=== PATIENT | female | born 1955 | race Caucasian/White ===

== ENCOUNTER → 2017-03-21 16:45 | Outpatient (CLI) | payer BC ==
[2010-02-23 12:48] VITALS: BMI 34.5
== END | disposition home or self-care (01) ==
LOC: D.MAMMO 10:30
DX: Z12.31 Encounter for screening mammogram for malignant neoplasm of breast (principal)

== ENCOUNTER 2018-07-09 08:00 | Outpatient (CLI) | payer MEDICARE ==
[2010-02-23 12:48] VITALS: BMI 34.5
== END 2018-07-09 09:00 | disposition home or self-care (01) ==
LOC: D.MAMMO 08:00
DX: Z12.31 Encounter for screening mammogram for malignant neoplasm of breast (principal)

== ENCOUNTER → 2018-09-17 09:49 | Outpatient (CLI) | payer MEDICARE, OTHER ==
[2010-02-23 12:48] VITALS: BMI 34.5
== END | disposition home or self-care (01) ==
LOC: D.HCCARDIO 09:49
PROVIDERS: ATTEND Internal Medicine Cardiovascular Disease
DX: I20.9 Angina pectoris, unspecified (principal)

== ENCOUNTER → 2018-10-02 11:14 | Outpatient (CLI) | payer MEDICARE, OTHER ==
[~2018-10-02] VITALS: Ht 166.4 cm; Wt 87.3 kg
--- NOTE | ~2018-10-02 | HEMODYNAMI ---
PATIENT:WARREN CASTILLO MEDICAL RECORD: [id number] : 51 LOCATION:[facility] ADMISSION DATE: 10/02/18 Generatedon:10/02/201815:03 Patient name: WARREN CASTILLO Patient #: [id number] SSN: D OB: 1955 Date of study: 10/02/2018 Page: Of Hemodynamic Procedure Report Patient Data Patient Demographics Procedure consent was obtained First Name: WARREN Gender: Female Last Name: ANNA : 1955 Middle Initial: JODI Age: 63 year(s) Patient #: [id number] Race: Unknown Additional ID: [id number] Contact details Address: [address] [place] [address] [facility] State: [place] City: [place] Zip code: [address] Past Medical History Allergies Allergen Reaction Date Comments Reported Other allergy 10/02/2018 ADHESIVE, LATEX Admission Admission Data Admission Date: 10/02/2018 Admission Time: 11:14 Height (in.): 65 BSA: 1.96 (m2) Height (cm.): 165.1 BMI: 32.45 (kg/m2) Weight (lbs.): 195 Weight (kg.): 88.45 Lab Results Lab Result Date: 10/02/2018 Lab Result Time: 0:00 Biochemistry Name Units Result Min Max BUN mg/dl 16 --(---*)-- 7 18 Creatinine mg/dl 0.8 --(-*--)-- 0.6 1.3 CBC Name Units Result Min Max Hematocrit % 39 *-(----)-- 42 54 Hemoglobin g/dl 12.7 -*(----)-- 13.5 17.5 Procedure Procedure Types Cath Procedure Diagnostic Procedure [facility] w/Coronaries Sedation Charges Moderate Sedation up to 15 minutes PCI Procedure Coronary Stent Coronary Stent Initial Procedure Description Procedure Date Procedure Date: 10/02/2018 Procedure Start Time: 14:27 Procedure End Time: 14:58 Procedure Staff Name Function Keith Arzate MD Performing Physician Gui Kellogg RT Monitor Eunice Kimberly RT Scrub Jose Perez RN Nurse Procedure Data Cath Procedure Fluoroscopy Diagnostic fluoroscopy Total fluoroscopy Time: 3 time: 3 min min Diagnostic fluoroscopy Total fluoroscopy dose: 972 dose: 972 mGy mGy Contrast Material Contrast Material Type Amount (ml) Isovue 300 119 Entry Location Entry Primary Successful Side Size Upsize Upsize Entry Closure Succes sful Closure Location (Fr) 1 (Fr) 2 (Fr) Remarks Device Remarks Femoral Right 5 Fr Exoseal vein Femoral Right 5 Fr 6 Fr Exoseal artery Short Estimated blood loss: 10 ml Diagnostic catheters Device Type Used For End Catheter Placement MULTIPACK JL 4.0 5Fr Procedure catheter MULTIPACK 3DRC 5Fr Procedure catheter MULTIPACK Pigtail 5 Fr Procedure catheter Procedure Complications No complications Procedure Medications Medication Administration Route Dosage Oxygen etCO2 Nasal cannula 2 l/min 0.9% NaCl I.V. 100 ml/hr Lidocaine 2% added to field 20 Heparin Flush Bag added to field 2 bags (1000units/500ml NS) Versed I.V. 2 mg Fentanyl I.V. 100 mcg Versed I.V. 1 mg Fentanyl I.V. 50 mcg Versed I.V. 1 mg Fentanyl I.V. 50 mcg Heparin Bolus I.V. 8500 units Effient P.O. 60 mg Hemodynamics Rest BSA: 1.96 (m2) O2 Consumption: Estimated: 204.52 (ml/min) O2 Consumption indexed : Estimated:104.35 (ml/min/m) Heart Rate: 99 (bpm) Pressure Samples Time Site Value (mmHg) Purpose Heart Use Rate(bpm) 14:36 LV 98/-6,5 Snapshot 99 14:37 LV 98/-6,5 Snapshot 99 14:37 AO 98/54(71) Pullback 98 14:37 LV 99/0,13 Pullback 98 Gradients Valve Time Site 1 Site 2 Mean SEP/DFP Peak To Heart Use (mmHg) (sec/min) Peak Rate (mmHg) (bpm) Aortic 14:37 LV AO 9 6 1 98 99/0,13 98/54(71) Calculations Valve P-P Mean Valve Index Valve Source Name Gradient Area Flow (cm2) Aortic 1 9 1 9 Snapshots Pre Cath Intra NCS Post Cath Vital Signs Time Heart Resp SPO2 etCO2 NIBP (mmHg) Rhythm Pain Sedation Rate (ipm) (%) (mmHg) Status Level (bpm) 14:20:05 98 27 92 38.4 129/93(113) NSR 0 (11) 10(A) , No pain 14:24:09 98 13 93 33.9 123/81(94) NSR 0 (11) 10(A) , No pain 14:28:13 98 14 94 16.5 116/75(89) NSR 0 (11) 10(A) , No pain 14:32:15 100 14 96 6 119/74(87) NSR 0 (11) 9(A) , No pain 14:36:20 98 11 93 0 109/67(95) NSR 0 (11) 9(A) , No pain 14:40:24 96 10 93 0 95/57(74) NSR 0 (11) 9(A) , No pain 14:44:22 95 10 94 15 93/64(76) NSR 0 (11) 9(A) , No pain 14:48:21 96 11 93 0 94/55(71) NSR 0 (11) 9(A) , No pain 14:52:21 103 14 96 38.4 107/58(83) NSR 0 (11) 10(A) , No pain 14:56:21 93 16 96 46 109/68(86) NSR 0 (11) 10(A) , No pain Medications Time Medication Route Dose Verified Delivered Reason Notes Effectiveness by by 14:14:28 Oxygen etCO2 2 Keith Buffie used for Nasal l/min Nghia Perez RN procedure cannula 14:18:40 0.9% NaCl I.V. 100 Keith Buffie used for ml/hr Nghia Perez RN procedure 14:18:50 Lidocaine 2% added 20ml Keith Keith for local to vial Nghia Arzate MD anesthetic field 14:18:55 Heparin Flush added 2 Keith Keith used for Bag to bags Nghia Arzate MD procedure (1000units/500ml field NS) 14:27:01 Fentanyl I.V. 100 Keith Buffie for sedation mcg Nghia Perez RN 14:27:56 Versed I.V. 2 mg Keith Buffie for sedation Nghia Perez RN 14:30:03 Versed I.V. 1 mg Keith Buffie for sedation Nghia Perez RN 14:30:18 Fentanyl I.V. 50 Keith Buffie for sedation mcg Nghia Perez RN 14:36:52 Versed I.V. 1 mg Keith Buffie for sedation Nghia Perez RN 14:36:56 Fentanyl I.V. 50 Keith Buffie for sedation mcg Nghia Perez RN 14:46:05 Heparin Bolus I.V. 8,500 Keith Buffie for verif ied units Nghia Perez RN anticoagulation with dr arzate 14:53:50 Effient P.O. 60 mg Keith Buffie for Nghia Perez RN antiplatelet therapy Procedure Log Time Note 13:51:06 Signed procedure consent form obtained from patient. 13:51:12 Jose Perez RN sent for patient. Start room use. 13:59:12 H&P Date Dictated: 09/12/2018 Within 30 days and on chart., H&P Addendum completed by physician on day of procedure. (MUST COMPLETE FOR ALL OUTPATIENTS). 13:59:33 Patient allergic to Other allergyADHESIVE, LATEX 13:59:45 Patient Height : 65 inches 13:59:48 Patient Weight : 195 lbs 14:07:59 Patient received from Pre/Post Procedure Room to CCL 2 Alert and oriented. Tansferred to table in Supine position. 14:08:00 Warm blankets applied, and benjamin hugger turned on for patient comfort. 14:08:01 Correct patient and procedure confirmed by team. 14:08:01 ECG and BP/O2 sat monitors applied to patient. 14:14:28 Oxygen 2 l/min etCO2 Nasal cannula was administered by Jose Perez RN; used for procedure; 14:18:40 0.9% NaCl 100 ml/hr I.V. was administered by Jose Perez RN; used for procedure; 14:18:50 Lidocaine 2% 20ml vial added to field was administered by Keith Arzate MD; for local anesthetic; 14:18:55 Heparin Flush Bag (1000units/500ml NS) 2 bags added to field was administered by Keith Arzate MD; used for procedure; 14:19:01 Vital chart was started 14:20:14 Full Disclosure recording started 14:20:17 Pre-procedure instructions explained to patient. 14:20:17 Pre-op teaching completed and patient verbalized understanding. 14:20:18 Family in patients room. 14:20:20 Patient NPO since Midnight. 14:20:22 Is patient on blood thinner?No 14:20:24 Patient diabetic? Yes. 14:20:26 If diabetic: On Metformin? Yes 14:20:34 If on Metformin: Last Dose? 09/30/2018 14:20:38 Previous problem with sedation/anesthesia? No ? 14:20:42 Snore? No 14:20:43 Sleep apnea? No 14:20:45 Deviated septum? No 14:20:46 Opens mouth fully? Yes 14:20:46 Sticks out tongue? Yes 14:20:48 Airway obstruction? No ? 14:20:50 Dentures? No ? 14:20:52 Pre procedure: right dorsailis pedis pulse 2+ Normal; easily identifiable; not easily obliterated 14:20:57 Patient pain scale 0/10 ?. 14:21:06 IV patent on arrival in left forearm with 0.9% NaCl at [facility]. 14:23:27 Lab Result : BUN 16 mg/dl 14:23:27 Lab Result : Hemoglobin 12.7 g/dl 14:23:27 Lab Result : Creatinine 0.8 mg/dl 14:23:27 Lab Result : Hematocrit 39 % 14:23:32 Lab results completed and on chart. 14:23:37 Right groin area was prepped with chlora-prep and draped in sterile fashion 14:23:38 Alarms reviewed by R. N. 14:23:39 Sharps counted by scrub and verified by R.N. 14:24:27 Use device set Radial Dx or PCI 14:24:39 ACIST Syringe (13964) opened to sterile field. 14:24:40 Bag Decanter (2001S) opened to sterile field. 14:24:40 ACIST Hand Control (07561) opened to sterile field. 14:24:41 ACIST Manifold (75893) opened to sterile field. 14:24:42 Tegaderm 4 x 4 (1626W) opened to sterile field. 14:24:44 Medline Cath Pack ([id number]) opened to sterile field. 14:24:44 DIAGNOSTIC WIRE .035 260cm J wire (336723) opened to sterile field. 14:26:50 --------ALL STOP TIME OUT------ 14:26:50 Final Timeout: patient, procedure, and site verified with staff and physician. All members of the team are in agreement. 14::53 Right groin site verified by team. 14::55 Maximum allowable Isovue 300 dose 300ml. Physician notified. (300ml for normal creatinines. For patients with creatinine of 1.7 or higher multiply weight(kg) x 5 divided by creatinine.) 14:26:59 Fire Safety Assessment: A--An alcohol-based skin anteseptic being used preoperatively., C--Open oxygen or nitrous oxide is being used., D--An ESU, laser, or fiber-optic light is being used. 14:27:01 Fentanyl 100 mcg I.V. was administered by Jose Perez RN; for sedation; 14:27:03 Physical assessment completed. ASA score P 2 - A patient with mild systemic disease as per Keith Arzate MD. 14:27:05 Sedation plan: IV Moderate Sedation Medication:Versed, Fentanyl 14:27:28 Procedure started. 14::54 Local anesthetic to right femoral artery with Lidocaine 2% by Keith Arzate MD.INITIAL ACCESS ONLY 14::56 Versed 2 mg I.V. was administered by Jose Perez RN; for sedation; 14:29:20 SHEATH 5FR Pemberton (ZOI489) opened to sterile field. 14:29:21 A 5 Fr sheath was inserted into the Right Femoral vein 14:29:29 SHEATH 5FR [place] (NXO451) opened to sterile field. 14:30:03 Versed 1 mg I.V. was administered by Jose Perez RN; for sedation; 14:30:18 Fentanyl 50 mcg I.V. was administered by Jose Perez RN; for sedation; 14:31:05 A 5 Fr sheath was inserted into the Right Femoral artery 14:31:22 Use device set Multipack Set 14:31:25 DIAGNOSTIC Multipack 5Fr catheter set (WO6499) opened to sterile field. 14:31:31 A MULTIPACK JL 4.0 5Fr catheter was advanced over the wire and used for Procedure. 14:32:21 Baseline sample Acquired. 14:32:28 Rhythm: sinus rhythm 14:32:40 LCA angiography performed. 14:34:15 Catheter exchanged over wire. 14:34:27 A MULTIPACK 3DRC 5Fr catheter was advanced over the wire and used for Procedure. 14:35:31 RCA angiography performed. 14:35:35 Catheter exchanged over wire. 14:36:10 A MULTIPACK Pigtail 5 Fr catheter was advanced over the wire and used for Procedure. 14:36:38 LV gram done using LOPEZ 14:36:40 Injector settings: Ml/sec: 10, Volume: 20, 14:36:52 Versed 1 mg I.V. was administered by Jose Perez RN; for sedation; 14:36:56 Fentanyl 50 mcg I.V. was administered by Jose Perez RN; for sedation; 14:37:06 LV hemodynamics recorded. 14:37:14 EF : 60 % 14:37:32 Catheter exchanged over wire. 14:39:57 SHEATH 6FR [place] (DAQ780) opened to sterile field. 14:39:58 INFLATOR Merit BasixCompak (IB1519) opened to sterile field. 14:39:58 BMW 300cm Straight [place] 2 wire ([id number]) opened to sterile field. 14:39:59 TUBING High Pressure Extension Tubing (Nghia) ([id number]) opened to sterile field. 14:41:31 Sheath upsized to a 6 Fr Short. 14:44:02 GUIDE 6FR 3DRC catheter ([id number]) opened to sterile field. 14:45:07 6 Fr 3DRC guide catheter was inserted over the wire 14:46:05 Heparin Bolus 8,500 units I.V. was administered by Jose Perez RN; for anticoagulation; verified with dr arzate 14:46:59 BMW 300 wire advanced. 14:47:04 Wire advanced across lesion. 14:50:32 Place stent Inflation Number: 1 A BARBRA OTW 3.5 x 12 stent ([id number]) was prepped and advanced across the Mid RCA. The stent was deployed at 12 HORTENSIA for 0:10 (min:sec). 14:51:04 Stent catheter was removed intact over wire. 14:51:04 Wire removed. 14:51:05 Guide catheter removed. 14:51:25 EXOSEAL 6Fr (EX600) opened to sterile field. 14:52:13 EXOSEAL 5Fr (EX500) opened to sterile field. 14:52:31 Sheath removed intact; hemostasis achieved with Exoseal to the Right Femoral artery. 14:52:41 Sheath removed intact; hemostasis achieved with Exoseal to the Right Femoral vein. 14:53:50 Effient 60 mg P.O. was administered by Jose Perez RN; for antiplatelet therapy; 14:56:07 Procedure ended.(Physican Out) 14:56:57 Fluoroscopy time 03.00 minutes. 14:57:00 Fluoroscopy dose: 972 mGy 14:57:00 Flurop Dose total: 972 14:57:04 Contrast amount:Isovue 300 119ml. 14:57:05 Sharps counted by scrub and verified by R.N. 14:57:09 Post-op/insertion site Right Femoral artery dressed using a 4 x 4 and Tegaderm. 14:57:11 Post-procedure physical assessment completed. ASA score P 2 - A patient with mild systemic disease as per Keith Arzate MD. 14:57:13 Post procedure rhythm: sinus rhythm 14:57:16 Estimated blood loss: 10 ml 14:57:17 Post procedure instruction explained to patient.Patient verbalizes understanding. 14:57:17 Patient needs reinforcement of post procedure teaching. 14:57:49 Procedure type changed to Cath procedure, Diagnostic procedure, LHC, LHC w/Coronaries, Sedation Charges, Moderate Sedation up to 15 minutes, PCI procedure, Coronary Stent, Coronary Stent Initial 14:58:25 Procedure and supply charges have been captured, reviewed, submitted and are correct. 14:58:27 Procedure Complication : No complications 14:58:33 Vital chart was stopped 14:58:33 See physician's report for complete and final results. 14:58:41 Report given to Pre/Post Procedure Room. 14:58:44 Patient transfered to Pre/Post Procedure Room with Bed. 14:58:46 Procedure ended. 14:58:46 Full Disclosure recording stopped 14:58:50 End room use (Document Last) Intervention Summary Intervention Notes Time ActionType Lesion and Equipment Action# Pressure Duration Attributes Used 14:50:32 Place stent Mid RCA BARBRA OTW 3.5 1 12 00:10 x 12 stent ([id number]) Device Usage Item Name Manufacture Quantity Catalog Hospital Part Current Mini mal Lot# / Number Charge Number Stock Stock Serial# Code ACIST Syringe Acist 1 76126 528720 300221 857491 20 (56437) Utrip Bag Decanter Microtek 1 2001S 496367 09732 645544 5 () Medical Inc. ACIST Hand Acist 1 70173 422437 352333 395675 5 Control Medical (40089) Systems Inc ACIST Acist 1 26380 422646 979347 917825 5 Manifold Medical (30424) Systems Inc Tegaderm 4 x 3M 1 1626W 276802 918431 685809 5 4 (1626W) Medline Cath Medline 1 [id number] 517695 97181 052114 5 Pack ([id number]) DIAGNOSTIC St Eliseo 1 866491 548775 691166 430675 30 WIRE .035 260cm J wire (928489) SHEATH 5FR Terumo 2 MIC750 922875 930787 251984 5 Pemberton (LMX313) DIAGNOSTIC Cardinal 1 ZK9211 634215 70213 006423 30 Multipack 5Fr Health catheter set (BE3241) MULTIPACK JL Cardinal 1 966377 5 4.0 5Fr Health catheter MULTIPACK Cardinal 1 610138 5 3DRC 5Fr Health catheter MULTIPACK Cardinal 1 663495 5 Pigtail 5 Fr Health catheter SHEATH 6FR Terumo 1 BRF399 481588 147391 654871 40 [place]ton (PNL414) INFLATOR Merit 1 WS5969 417967 391456 685351 15 [facility] Medical BasixCompak (HT6416) BMW 300cm Garber 1 0890700 247395 302587 202580 5 Straight Vascular [place] 2 wire (2752629) TUBING High Merit 1 [id number] 117315 33014 754162 10 Pressure Medical Extension Tubing (Arzate) (PD1744E) GUIDE 6FR Medtronic 1 [id number] 561867 659997 866069 1 3DRC catheter ([id number]) BARBRA OTW 3.5 Medtronic 1 [id number] 110096 9974792 943238 5 [id number] x 12 stent ([id number]) EXOSEAL 6Fr Cardinal 1 EX600 168926 997447 507380 10 (EX600) Health EXOSEAL 5Fr Cardinal 1 EX500 994129 675577 625883 10 (EX500) Health Signature Audit [place] Stage Time Signature Unsigned Intra-Procedure 10/02/2018 Eunice Harris 3:03:15 PM RT(R) Signatures Monitor : Gui Kellogg RT Signature : Date : Time : [facility] [address] [place] [address]
[~2018-10-02 11:14] MED LIST: EFFIENT10 MG PO; GLUCOPHAGE1000 MG PO; LISINOPRIL20 MG PO; MAG-OX 400 MG400 MG PO; OMEPRAZOLE20 M1 PO; PROBIOTIC250 MG PO
[2018-10-02 11:53] VITALS: BP 136/81; Ht 166.4 cm; Wt 87.3 kg
[2018-10-02 11:58] LABS: BASOPHILS 0.3 % (0-2); EOSINOPHILS 2.6 % (0-7); HEMOGLOBIN 12.7 g/dL (12-16); IMMATURE GRANULOCYTES 0.1 % (0-5); LYMPHOCYTES 26.2 % (15-50); MCH 28.3 pg (26.0-34.0); MCHC 32.6 g/dL (31.0-37.0); MCV 86.9 fL (80.0-100.0); MEAN PLATELET VOLUME 10.1 fL (7.4-10.4); MONOCYTES 6.3 % (2-11); NEUTROPHILS 64.5 % (40-80); RBC 4.49 10x6/uL (4.00-5.40); RDW 13.9 % (11.5-14.5); WBC 7.3 10x3/uL (4.8-10.8)
[2018-10-02 12:01] LABS: PLATELET COUNT 228 10x3/uL (130-400)
[2018-10-02 12:10] LABS: CALC OSMOLALITY 282 mosm/kg (275-300); CALCIUM 9.1 mg/dL (8.5-10.1); CARBON DIOXIDE 29.6 mmol/L (21.0-32.0); CHLORIDE - SERUM 101 mmol/L (98-107); CREATININE - SERUM 0.8 mg/dL (0.6-1.3); POTASSIUM - SERUM 4.4 mmol/L (3.5-5.1); SODIUM 139 mmol/L (136-145); UREA NITROGEN 16 mg/dL (7-18); eGFR NON AFRICAN AMERICAN 76 mL/min (90-120)
[2018-10-02 12:11] LABS: GLUCOSE 177 mg/dL (74-106)
--- NOTE | 2018-10-02 15:25 | NUR ---
2L NC, NO RESP DISTRESS. RIGHT GROIN 6F EXOSEAL CDI, NO BLEEDING OR HEMATOMA NOTED. NO C/O PAIN OR NAUSEA. VSS. FAMILY AT BEDSIDE, CALL LIGHT WITHIN REACH.
--- NOTE | 2018-10-02 15:55 | NUR ---
RESTING QUIETLY WITH EYES CLOSED. RIGHT GROIN 6F EXOSEAL CDI, NO BLEEDING OR HEMATOMA NOTED. DENIES ANY NEEDS. VSS. WILL CONTINUE TO MONITOR.
--- NOTE | 2018-10-02 16:10 | NUR ---
CONTINUES TO REST COMFORTABLY WITH NO C/O. RIGHT GROIN 6F EXOSEAL CDI, NO BLEEDING OR HEMATOMA NOTED. NO NEEDS VOICED. VSS. CALL LIGHT WITHIN REACH.
--- NOTE | 2018-10-02 16:25 | NUR ---
6 FR EXOSEAL R/GROIN IS CDI WITH CHEST PAIN DENIED VSS AND FAMILY AT BEDSIDE. SANDWICH AND SODA PROVIDED WITH NAUSEA DENIED
--- NOTE | 2018-10-02 16:55 | NUR ---
PATIENT AWAKE, SIPPING WATER, NO N/V. AT BEDSIDE. VSS ON ROOM AIR. RIGHT GROIN DRESSING IS CDI, NO S/S OF BLEEDING OR HEMATOMA. NO C/O PAIN, NUMBNESS, OR TINGLING.
--- NOTE | 2018-10-02 17:25 | NUR ---
HEAD OF BED ELEVATED TO 30 DEGREES, RIGHT GROIN DRESSING IS CDI, NO S/S OF BLEEDING OR HEMATOMA. PATIENT TOLERATING PO FLUIDS AND FOOD, NO N/V. VSS ON ROOM AIR. NO C/O PAIN, NUMBNESS, OR TINGLING.
--- NOTE | 2018-10-02 17:54 | NUR ---
HEAD OF BED AT 90 DEGREES, RIGHT GROIN DRESSING IS CDI, NO S/S OF BLEEDING OR HEMATOMA. VSS ON ROOM AIR. SPOUSE AT BEDSIDE. NO C/O PAIN, NUMBNESS, OR TINGLING.
--- NOTE | 2018-10-02 18:15 | NUR ---
IV REMOVED. RIGHT GROIN DRESSING IS CDI, NO S/S OF BLEEDING OR HEMATOMA. EDUCATION REGARDING DISCHARGE INSTRUCTIONS AND MEDICATION COMPLIANCE GIVEN TO PATIENT AND SPOUSE, ALL QUESTIONS ANSWERED, PATIENT VOICES UNDERSTANDING. VSS ON ROOM AIR.
--- NOTE | 2018-10-02 18:29 | NUR ---
PATIENT TRANSPORTED VIA WHEELCHAIR TO CAR WITH SPOUSE DRIVING, ALL BELONGINGS SENT WITH PATIENT.
== END | disposition home or self-care (01) ==
LOC: D.CATH 11:14
PROVIDERS: ATTEND Internal Medicine Cardiovascular Disease
DX: I25.119 Atherosclerotic heart disease of native coronary artery with unspecified angina pectoris (principal); Z01.812 Encounter for preprocedural laboratory examination
CPT/HCPCS: 93458; C9600

== ENCOUNTER 2018-10-09 06:23 | Outpatient (CLI) | payer MEDICARE, OTHER ==
[~2018-10-09] VITALS: Ht 166.4 cm; Wt 86.4 kg
--- NOTE | ~2018-10-09 | HEMODYNAMI ---
PATIENT:WARREN CASTILLO MEDICAL RECORD: [id number] : 51 LOCATION:[facility] ADMISSION DATE: 10/09/18 Generatedon:10/09/20188:54 Patient name: WARREN CASTILLO Patient #: [id number] SSN: D OB: 1955 Date of study: 10/09/2018 Page: Of Hemodynamic Procedure Report Patient Data Patient Demographics Procedure consent was obtained First Name: WARREN Gender: Female Last Name: ANNA : 1955 Middle Initial: JODI Age: 63 year(s) Patient #: [id number] Race: Unknown Additional ID: [id number] Contact details Address: [address] [place] [address] [facility] State: [place] City: [place] Zip code: [address] Past Medical History Allergies Allergen Reaction Date Comments Reported Other allergy 10/02/2018 ADHESIVE, LATEX Other allergy 10/09/2018 ADHESIVE, LATEX Admission Admission Data Admission Date: 10/09/2018 Admission Time: 6:23 Height (in.): 25.59 BSA: 1 (m2) Height (cm.): 65 BMI: 209.35 (kg/m2) Weight (lbs.): 195 Weight (kg.): 88.45 Lab Results Lab Result Date: 10/09/2018 Lab Result Time: 0:00 Biochemistry Name Units Result Min Max BUN mg/dl 15 --(--*-)-- 7 18 Creatinine mg/dl 0.8 --(-*--)-- 0.6 1.3 CBC Name Units Result Min Max Hemoglobin g/dl 12.4 *-(----)-- 13.5 17.5 Procedure Procedure Types Cath Procedure PCI Procedure Coronary Stent Coronary Stent Initial Procedure Description Procedure Date Procedure Date: 10/09/2018 Procedure Start Time: 8:21 Procedure End Time: 8:48 Procedure Staff Name Function Keith Agrawal MD Performing Physician Jose Perez RN Ring Maker Alyssia Infante RN Nurse Nannette Davis RT Monitor Eunice Harris RT Scrub Procedure Data Cath Procedure Fluoroscopy Diagnostic fluoroscopy Total fluoroscopy Time: 6.9 time: 6.9 min min Diagnostic fluoroscopy Total fluoroscopy dose: dose: 1132 mGy 1132 mGy Contrast Material Contrast Material Type Amount (ml) Isovue 300 111 Entry Location Entry Primary Successful Side Size Upsize Upsize Entry Closure Succes sful Closure Location (Fr) 1 (Fr) 2 (Fr) Remarks Device Remarks Femoral Right 6 Fr Exoseal artery Short Estimated blood loss: 5 ml Procedure Complications No complications Procedure Medications Medication Administration Route Dosage 0.9% NaCl I.V. 100 ml/hr Oxygen etCO2 Nasal cannula 2 l/min Lidocaine 2% added to field 20 Heparin Flush Bag added to field 2 bags (1000units/500ml NS) Versed I.V. 2 mg Fentanyl I.V. 50 mcg Versed I.V. 2 mg Fentanyl I.V. 50 mcg Heparin Bolus I.V. 8500 units Nitroglycerin IC/IA I.C. 100 mcg Versed I.V. 1 mg Hemodynamics Rest BSA: 1 (m2) HGB: 12.4 (g/dl) O2 Consumption: Estimated: 93.99 (ml/min) O2 Consum ption indexed: Estimated:93.99 (ml/min/m) Heart Rate: 71 (bpm) Snapshots Pre Cath Intra NCS Post Cath Vital Signs Time Heart Resp SPO2 etCO2 NIBP (mmHg) Rhythm Pain Sedation Rate (ipm) (%) (mmHg) Status Level (bpm) 8:10:52 81 11 100 35.8 153/97(117) NSR 0 (11) 10(A) , No pain 8:15:10 81 16 98 31 123/77(100) NSR 0 (11) 10(A) , No pain 8:19:28 86 18 96 29.1 135/80(110) NSR 0 (11) 10(A) , No pain 8:23:44 80 14 97 29.6 115/69(91) NSR 0 (11) 9(A) , No pain 8:28:00 84 15 98 28.9 107/61(86) NSR 0 (11) 9(A) , No pain 8:32:12 88 15 96 30 99/56(75) NSR 0 (11) 9(A) , No pain 8:36:22 97 19 96 31.3 117/71(86) NSR 0 (11) 10(A) , No pain 8:40:42 89 17 99 28.3 123/66(88) NSR 0 (11) 9(A) , No pain 8:45:02 86 19 100 30.6 120/75(92) NSR 0 (11) 10(A) , No pain 8:49:22 86 16 100 33.6 121/70(105) NSR 0 (11) 10(A) , No pain Medications Time Medication Route Dose Verified Delivered Reason Notes Effectiveness by by 8:09:43 0.9% NaCl I.V. 100 Keith Alyssia used for ml/hr Nghia Infante pst specialist 8:09:50 Oxygen etCO2 2 Keith Alyssia used for Nasal l/min Nghia Infante procedure cannula RN 8:09:56 Lidocaine 2% added 20ml Keith Keith for local to vial Nghia Agrawal MD anesthetic field 8:10:00 Heparin Flush added 2 Keiht Keith used for Bag to bags Nghia Agrawal MD procedure (1000units/500ml field NS) 8:15:31 Versed I.V. 2 mg Keith Alyssia for sedation Nghia Infante RN 8:15:40 Fentanyl I.V. 50 Keith Alyssia for sedation mcg Nghia Infante RN 8:20:47 Versed I.V. 2 mg Keith Alyssia for sedation Nghia Infante RN 8:20:52 Fentanyl I.V. 50 Keith Alyssia for sedation mcg Nghia Infante RN 8:25:54 Heparin Bolus I.V. 8500 Keith Alyssia for verifi ed units Nghia Infante anticoagulation with Dr. TREV Agrawal 8:30:28 Nitroglycerin I.C. 100 Keith Keith for IC/IA mcg Nghia Agrawal MD vasodilation 8:38:00 Versed I.V. 1 mg Keith Alyssia for sedation Nghia Infante RN Procedure Log Time Note 7:54:23 Signed procedure consent form obtained from patient. 7:54:24 Diagnostic Cath status Elective 7:54:25 Time tracking: Regular hours (M-F 7:00 - 5:00) 7:54:28 Plan of Care:Hemodynamics will remain stable., Cardiac rhythm will remain stable., Comfort level will be maintained., Respiratory function will remain adequate., Patient/ family verbilizes understanding of procedure., Procedure tolerated without complication., Recovers from procedure without complications.. 7:54:39 H&P Date Dictated: 10/09/2018 New H&P dictated by physician.. 7:55:28 Jose Perez RN sent for patient. Start room use. 7:55:46 Patient allergic to Other allergyADHESIVE, LATEX 7:56:48 Patient Height : 25.59 inches 7:56:58 Patient Weight : 195 lbs 8:03:37 Patient received from Pre/Post Procedure Room to CCL 1 Alert and oriented. Tansferred to table in Supine position. 8:03:38 Warm blankets applied, and benjamin hugger turned on for patient comfort. 8:03:38 Correct patient and procedure confirmed by team. 8:03:39 ECG and BP/O2 sat monitors applied to patient. 8:09:30 Vital chart was started 8:09:43 0.9% NaCl 100 ml/hr I.V. was administered by Alyssia Infante RN; used for procedure; 8:09:50 Oxygen 2 l/min etCO2 Nasal cannula was administered by Alyssia Infante RN; used for procedure; 8:09:56 Lidocaine 2% 20ml vial added to field was administered by Keith Agrawal MD; for local anesthetic; 8:10:00 Heparin Flush Bag (1000units/500ml NS) 2 bags added to field was administered by Keith Agrawal MD; used for procedure; 8:13:03 Baseline sample Acquired. 8:13:06 Rhythm: sinus rhythm 8:13:08 Full Disclosure recording started 8:13:09 Pre-procedure instructions explained to patient. 8:13:09 Pre-op teaching completed and patient verbalized understanding. 8:13:10 Family in waiting room. 8:13:12 Patient NPO since Midnight. 8:13:14 Is the patient allergic to Iodine/contrast media? No. 8:13:16 Was the patient premedicated? No 8:13:19 Is patient on blood thinner?Yes 8:13:22 ACC The patient was administered the following blood thiners within the last 24 hours: ACCEffient 8:13:25 Patient diabetic? Yes. 8:13:26 If diabetic: On Metformin? Yes 8:13:29 If on Metformin: Last Dose? 10/08/2018 8:13:33 Previous problem with sedation/anesthesia? No ? 8:13:35 Snore? Yes 8:13:36 Sleep apnea? No 8:13:37 Deviated septum? No 8:13:38 Opens mouth fully? Yes 8:13:38 Sticks out tongue? Yes 8:13:40 Airway obstruction? No ? 8:13:43 Dentures? No ? 8:13:45 Pre procedure: right dorsailis pedis pulse 2+ Normal; easily identifiable; not easily obliterated 8:13:47 Pre procedure: left dorsailis pedis pulse 2+ Normal; easily identifiable; not easily obliterated 8:13:49 Patient pain scale 0/10 ?. 8:13:54 IV patent on arrival in right forearm with 0.9% NaCl at [facility]. 8:13:56 Lab results completed and on chart. 8:14:00 Right groin area was prepped with chlora-prep and draped in sterile fashion 8:14:01 Alarms reviewed by R. N. 8:14:02 Sharps counted by scrub and verified by R.N. 8:14:03 Physician arrived 8:14:04 --------ALL STOP TIME OUT------ 8:14:04 Final Timeout: patient, procedure, and site verified with staff and physician. All members of the team are in agreement. 8:14:09 Right groin site verified by team. 8:14:14 Maximum allowable Isovue 300 dose 300ml. Physician notified. (300ml for normal creatinines. For patients with creatinine of 1.7 or higher multiply weight(kg) x 5 divided by creatinine.) 8:14:18 Fire Safety Assessment: A--An alcohol-based skin anteseptic being used preoperatively., C--Open oxygen or nitrous oxide is being used., D--An ESU, laser, or fiber-optic light is being used. 8:14:22 Physical assessment completed. ASA score P 2 - A patient with mild systemic disease as per Keith Agrawal MD. 8:14:25 Sedation plan: IV Moderate Sedation Medication:Versed, Fentanyl 8:14:31 Use device set CATH PACK 8:14:33 ACIST Syringe (80418) opened to sterile field. 8:14:33 ACIST Hand Control (54566) opened to sterile field. 8:14:33 ACIST Manifold (10547) opened to sterile field. 8:14:34 Medline Cath Pack (MDIN93531) opened to sterile field. 8:14:34 Bag Decanter (2002S) opened to sterile field. 8:14:35 DIAGNOSTIC WIRE .035 260cm J wire (551927) opened to sterile field. 8:14:55 TUBING High Pressure Extension Tubing (Nghia) ([id number]) opened to sterile field. 8:14:56 BMW 300cm [place] 2 J wire ([id number]) opened to sterile field. 8:14:56 INFLATOR Merit BasixCompak (MK3352) opened to sterile field. 8:14:57 SHEATH 6FR [place] (ZCF964) opened to sterile field. 8:15:31 Versed 2 mg I.V. was administered by Alyssia Infante RN; for sedation; 8:15:40 Fentanyl 50 mcg I.V. was administered by Alyssia Infante RN; for sedation; 8:15:45 Lab Result : BUN 15 mg/dl 8:15:45 Lab Result : Creatinine 0.8 mg/dl 8:15:45 Lab Result : Hemoglobin 12.4 g/dl 8:20:47 Versed 2 mg I.V. was administered by Alyssia Infante RN; for sedation; 8:20:52 Fentanyl 50 mcg I.V. was administered by Alyssia Infante RN; for sedation; 8:21:38 Procedure started. 8:21:52 Local anesthetic to right femoral artery with Lidocaine 2% by Keith Agrawal MD.INITIAL ACCESS ONLY 8:22:10 A 6 Fr Short sheath was inserted into the Right Femoral artery 8:22:42 GUIDE 6FR XBLAD 3.5 catheter ([id number]) opened to sterile field. 8:24:28 6 Fr xblad 3.5 guide catheter was inserted over the wire 8:24:43 LCA angiography performed. 8:24:47 Injector settings: Ml/sec: 3, Volume: 6, 8:25:54 Heparin Bolus 8500 units I.V. was administered by Alyssia Infante RN; for anticoagulation; verified with Dr. Agrawal 8:26:46 bmw wire advanced. 8:26:51 Wire advanced across lesion. 8:30:28 Nitroglycerin IC/IA 100 mcg I.C. was administered by Keith Agrawal MD; for vasodilation; 8:38:00 Versed 1 mg I.V. was administered by Alyssia Infante RN; for sedation; 8:38:55 Place stent Inflation Number: 1 A BARBRA OTW 2.75 x 12 stent ([id number]) was prepped and advanced across the Prox LAD. The stent was deployed at 14 HORTENSIA for 0:10 (min:sec). 8:39:45 Stent catheter was removed intact over wire. 8:44:31 Place stent Inflation Number: 2 A BARBRA OTW 2.75 x 18 stent ([id number]) was prepped and advanced across the Prox LAD. The stent was deployed at 12 HORTENSIA for 0:10 (min:sec). 8:44:49 Inflation number: 3 The stent balloon was then re-inflated across the Prox LAD to 13 HORTENSIA for 0:10 (min:sec). 8:47:27 Stent catheter was removed intact over wire. 8:47:28 Wire removed. 8:47:29 Guide catheter removed. 8:47:37 Sheath removed intact; hemostasis achieved with Exoseal to the Right Femoral artery. 8:47:39 Procedure ended.(Physican Out) 8:47:51 Fluoroscopy time 06.90 minutes. 8:47:59 Flurop Dose total: 1132 8:47:59 Fluoroscopy dose: 1132 mGy 8:48:04 Contrast amount:Isovue 300 111ml. 8:48:05 Sharps counted by scrub and verified by R.N. 8:48:06 Insertion/operative site no bleeding no hematoma. 8:48:10 Post-op/insertion site Right Femoral artery dressed using a 4 x 4 and Tegaderm. 8:48:14 Post procedure rhythm: unchanged. 8:48:24 Estimated blood loss: 5 ml 8:48:26 Post procedure instruction explained to patient.Patient verbalizes understanding. 8:48:27 Patient needs reinforcement of post procedure teaching. 8:48:32 Procedure and supply charges have been captured, reviewed, submitted and are correct. 8:48:37 Procedure Complication : No complications 8:48:40 Vital chart was stopped 8:48:40 See physician's report for complete and final results. 8:48:43 Report given to Pre/Post Procedure Room. 8:48:46 Patient transfered to Pre/Post Procedure Room with Stretcher. 8:48:48 Procedure ended. 8:48:48 Full Disclosure recording stopped 8:48:56 ACC-PCI Only Patient was given prescriptions, or instructed by Keith Agrawal MD to start/continue the following medications upon discharge: Effient 8:48:58 End room use (Document Last) 8:50:45 EXOSEAL 6Fr (EX600) opened to sterile field. Intervention Summary Intervention Notes Time ActionType Lesion and Equipment Action# Pressure Duration Attributes Used 8:38:55 Place stent Prox LAD BARBRA OTW 2.75 1 14 00:10 x 12 stent ([id number]) 8:44:31 Place stent Prox LAD BARBRA OTW 2.75 2 12 00:10 x 18 stent ([id number]) 8:44:49 Reinflate Prox LAD BARBRA OTW 2.75 3 13 00:10 stent x 18 stent balloon ([id number]) Device Usage Item Name Manufacture Quantity Catalog Hospital Part Current Mini mal Lot# / Number Charge Number Stock Stock Serial# Code ACIST Syringe Acist 1 92804 602851 169622 753250 20 (30307) Medical Systems Inc ACIST Hand Acist 1 86252 087266 601476 801276 5 Control Medical (77697) Systems Inc ACIST Acist 1 20989 413622 513947 328991 5 Manifold Medical (54257) Systems Inc Medline Cath Medline 1 [id number] 722459 84669 725339 5 Pack ([id number]) Bag Decanter Microtek 1 2001S 407146 69572 081974 5 (2001S) Medical Inc. DIAGNOSTIC [place] 1 344656 090922 713402 981109 30 WIRE .035 260cm J wire (485471) TUBING High Merit 1 [id number] 017417 72346 658948 10 Pressure Medical Extension Tubing (Agrawal) ([id number]) BMW 300cm Garber 1 [id number] 549666 706324 397442 5 [place] 2 J Vascular wire ([id number]) INFLATOR Merit 1 VE6996 178666 089449 960261 15 Merit Medical BasixCompak (AH1054) SHEATH 6FR Terumo 1 HNC385 335215 818464 923016 40 [place] (SGS021) GUIDE 6FR Cardinal 1 [id number] 976810 492395 641347 10 XBLAD 3.5 Health catheter (32874585) BARBRA OTW 2.75 Medtronic 1 [id number] 626518 0038374 020386 5 [id number] x 12 stent ([id number]) BARRBA OTW 2.75 Medtronic 1 [id number] 369911 4325036 896525 5 [id number] x 18 stent ([id number]) EXOSEAL 6Fr Cardinal 1 EX600 755345 677089 263108 10 (EX600) Health Signature Audit [place] Stage Time Signature Unsigned Intra-Procedure 10/09/2018 Nannette Davis 8:53:58 AM RT(R) Signatures Monitor : Nannette Davis RT Signature : Date : Time : [place] [id number] [place] [address]
[2018-10-09] MEDS ORDERED: LIPITOR40 MG PO (06:38)
[2018-10-09 06:47] VITALS: BP 142/80; Ht 166.4 cm; Wt 86.4 kg
[2018-10-09 07:07] LABS: BASOPHILS 0.3 % (0-2); EOSINOPHILS 2.8 % (0-7); HEMATOCRIT 37.6 % (36.0-48.0); HEMOGLOBIN 12.4 g/dL (12-16); IMMATURE GRANULOCYTES 0.2 % (0-5); LYMPHOCYTES 25.4 % (15-50); MCH 28.3 pg (26.0-34.0); MCV 85.8 fL (80.0-100.0); NEUTROPHILS 62.3 % (40-80); PLATELET COUNT 213 10x3/uL (130-400); RBC 4.38 10x6/uL (4.00-5.40); RDW 13.7 % (11.5-14.5); WBC 6.5 10x3/uL (4.8-10.8)
[2018-10-09 07:52] LABS: CALCIUM 8.9 mg/dL (8.5-10.1); CARBON DIOXIDE 28.5 mmol/L (21.0-32.0); CREATININE - SERUM 0.8 mg/dL (0.6-1.3); GLUCOSE 194 mg/dL (74-106); UREA NITROGEN 15 mg/dL (7-18); eGFR NON AFRICAN AMERICAN 76 mL/min (90-120)
[2018-10-09 08:38] LABS: CALC OSMOLALITY 283 mosm/kg (275-300); CHLORIDE - SERUM 102 mmol/L (98-107); POTASSIUM - SERUM 3.9 mmol/L (3.5-5.1); SODIUM 139 mmol/L (136-145)
--- NOTE | 2018-10-09 09:00 | NUR ---
PT RECEIVED VIA STRETCHER FROM ELECTRICIAN CHIEF FOR RECOVERY. PT SLEEPING BUT VERBALLY AROUSABLE. 6FR EXOCELE TO R GROIN, DRESSING CDI NO BLEEDING OR HEMATOMA NOTED. PEDAL PULSES PALPABLE. PT INSTRUCTED TO KEEP HEAD ON PILLOW AND R LEG STRAIGHT, PT VERBALIZED UNDERSTANDING. HR NSR RATE 74, BP 147/81, O2 SAT 95 ON 2L/NC. CALL LIGHT IN REACH, AT BEDSIDE. IV PATENT INFUSING VIA GRAVITY.
--- NOTE | 2018-10-09 09:15 | NUR ---
6 FR EXOSEAL R/GROIN IS CDI WITH AREA SOFT TO PALPATE. R/FOOT WARM TO TOUCH WITH PULSES PALPABLE. HR 71 BP 135/72 CHEST PAIN IS DENIED. INSTRUCTED PATIENT TO KEEP HEAD FLAT ON PILLOW WITH RLE STRAIGHT
--- NOTE | 2018-10-09 09:36 | NUR ---
RESTING QUIETLY WITH NO DISTRESS 6 FR EXOSEAL R/GROIN REMAINS CDI
--- NOTE | 2018-10-09 10:05 | NUR ---
PT RESTING COMFORTABLY, DENIES PAIN OR DISCOMFORT. R GROIN REMAINS SOFT, DRESSING CDI NO BLEEDING OR SWELLING NOTED. DR. KINSEY WAS IN AND SPOKE WITH PT AND REGARDING PROCEDURE AND PLAN OF CARE. CALL LIGHT IN REACH, AT BEDSIDE
--- NOTE | 2018-10-09 10:31 | NUR ---
PT RESTING COMFORTABLY. DENIES PAIN OR NEEDS. R GROIN DRESSING REMAINS CDI NO BLEEDING OR HEMATOMA NOTED. CALL LIGHT IN REACH. VSS
--- NOTE | 2018-10-09 11:00 | NUR ---
PT RESTING QUIETLY, DENIES PAIN OR NEEDS. GROIN DRESSING REMAINS CDI NO BLEEDING OR SWELLING NOTED. VSS
--- NOTE | 2018-10-09 11:30 | NUR ---
NO CHANGE IN CONDITION, GROIN REMAINS SOFT NO BLEEDING OR HEMATOMA NOTED. PEDAL PULSES PALPABLE. CALL LIGHT IN REACH, AT BEDSIDE
--- NOTE | 2018-10-09 11:52 | NUR ---
REPOSITIONED TO [facility] UP 20 FOR COMFORT. 6 FR EXOSEAL R/GROIN REMAINS CDI WITH CHEST PAIN DENIED.
--- NOTE | 2018-10-09 12:12 | NUR ---
HEAD OF BED ELEVATED TO 40 DEGREES, RIGHT GROIN DRESSING IS CDI, NO S/S OF BLEEDING OR HEMATOMA. PATIENT GIVEN FRUIT AND VEGETABLE TRAY PER REQUEST, TOLERATING PO FLUIDS AND FOOD. NO NAUSEA. VSS ON 2L NC.
--- NOTE | 2018-10-09 12:26 | NUR ---
VERBAL AND WRITTEN DISCHARGE GONE OVER WITH PATINET AND FAMILY 6 FR EXOSEAL R/GROIN REMAINS CDI
--- NOTE | 2018-10-09 12:35 | NUR ---
HEAD OF BED AT 90 DEGREES, RIGHT GROIN DRESSING IS CDI, NO S/S OF BLEEDING OR HEMATOMA. IV REMOVED. PATIENT AND SPOUSE VOICE UNDERSTANDING OF DISCHARGE INSTRUCTIONS AND MEDICATION COMPLIANCE. VSS ON ROOM AIR.
--- NOTE | 2018-10-09 12:45 | NUR ---
PATIENT TRANSPORTED VIA WHEELCHAIR TO CAR WITH SPOUSE DRIVING, ALL BELONGINGS WITH PATIENT.
== END 2018-10-09 12:45 ==
LOC: D.CATH 06:23
PROVIDERS: ATTEND Internal Medicine Cardiovascular Disease
DX: I25.119 Atherosclerotic heart disease of native coronary artery with unspecified angina pectoris (principal); Z01.812 Encounter for preprocedural laboratory examination

== ENCOUNTER 2019-04-06 12:13 | Observation (INO) | payer MEDICARE, OTHER ==
[~2019-04-06] VITALS: Ht 166.4 cm; Wt 72.7 kg
--- NOTE | ~2019-04-06 | HEMODYNAMI ---
PATIENT:WARREN CASTILLO MEDICAL RECORD: [id number] : 51 LOCATION:D. D.2118 ADMISSION DATE: 04/06/19 Generatedon:04/07/20199:26 Patient name: WARREN CASTILLO Patient #: [id number] SSN: [id number] : 1955 Date of study: 04/07/2019 Page: Of Hemodynamic Procedure Report Patient Data Patient Demographics Procedure consent was obtained First Name: WARREN Gender: Female Last Name: ANNA : 1955 [facility] Initial: JODI Age: 64 year(s) Patient #: [id number] Race: SSN: [id number] Additional ID: [id number] Contact details Address: [address] [place] [address] [facility] State: [place] City: [place] Zip code: [address] Past Medical History Allergies Allergen Reaction Date Comments Reported Other allergy 10/02/2018 ADHESIVE, LATEX Other allergy 10/09/2018 ADHESIVE, LATEX Other allergy 04/07/2019 ADHESIVE TAPE, LATEX Admission Admission Data Admission Date: 04/06/2019 Admission Time: 14:24 Arrival Date: 04/06/2019 Arrival Time: 14:24 Admit Source: Other Insurance Payor: Medicare Room #: D.2118 Height (in.): 65.35 BSA: 1.81 (m2) Height (cm.): 166 BMI: 26.49 (kg/m2) Weight (lbs.): 160.94 Weight (kg.): 73 Lab Results Lab Result Date: 04/07/2019 Lab Result Time: 0:00 Biochemistry Name Units Result Min Max BUN mg/dl 12 --(-*--)-- 7 18 Creatinine mg/dl 0.7 --(*---)-- 0.6 1.3 eGFR ml/min 88.80580 -*(----)-- 90 120 NONAFRICAN CBC Name Units Result Min Max Hemoglobin g/dl 12.2 *-(----)-- 13.5 17.5 Procedure Procedure Types Cath Procedure Diagnostic Procedure [facility] w/Coronaries Procedure Description Procedure Date Procedure Date: 04/07/2019 Procedure Start Time: 9:16 Procedure End Time: 9:23 Procedure Staff Name Function Sean Montero MD Performing Physician Eunice Harris RT Monitor Nannette Davis RT Scrub Alyssia Infante RN Nurse Procedure Data Cath Procedure Fluoroscopy Diagnostic fluoroscopy Total fluoroscopy Time: 1.1 time: 1.1 min min Diagnostic fluoroscopy Total fluoroscopy dose: 331 dose: 331 mGy mGy Contrast Material Contrast Material Type Amount (ml) Isovue 300 48 Entry Location Entry Primary Successful Side Size Upsize Upsize Entry Closure Succes sful Closure Location (Fr) 1 (Fr) 2 (Fr) Remarks Device Remarks Femoral Right 5 Fr Exoseal artery Estimated blood loss: 5 ml Diagnostic catheters Device Type Used For End Catheter Placement MULTIPACK JL 4.0 5Fr Procedure catheter MULTIPACK 3DRC 5Fr Procedure catheter MULTIPACK Pigtail 5 Fr Procedure catheter Procedure Complications No complications Procedure Medications Medication Administration Route Dosage 0.9% NaCl I.V. 100 ml/hr Oxygen etCO2 Nasal cannula 2 l/min Lidocaine 2% added to field 20 Heparin Flush Bag added to field 2 bags (1000units/500ml NS) Versed I.V. 2 mg Fentanyl I.V. 100 mcg Hemodynamics Rest BSA: 1.81 (m2) O2 Consumption: Estimated: 172.71 (ml/min) O2 Consumption indexed : Estimated:95.42 (ml/min/m) Heart Rate: 76 (bpm) Pressure Samples Time Site Value (mmHg) Purpose Heart Use Rate(bpm) 9:20 LV 97/10,12 Snapshot 83 9:21 AO 93/55(73) Pullback 84 9:21 LV 99/11,19 Pullback 84 Gradients Valve Time Site 1 Site 2 Mean SEP/DFP Peak To Heart Use (mmHg) (sec/min) Peak Rate (mmHg) (bpm) Aortic 9:21 LV AO 3 15 6 84 99/11,19 93/55(73) Calculations Valve P-P Mean Valve Index Valve Source Name Gradient Area Flow (cm2) Aortic 6 3 6 3 Snapshots Pre Cath Intra NCS Post Cath Vital Signs Time Heart Resp SPO2 etCO2 NIBP (mmHg) Rhythm Pain Sedation Rate (ipm) (%) (mmHg) Status Level (bpm) 9:05:07 76 17 98 42 174/91(141) NSR 0 (11) 10(A) , No pain 9:09:48 78 18 97 37.4 171/86(119) NSR 0 (11) 10(A) , No pain 9:14:16 85 18 98 18 131/73(93) NSR 0 (11) 10(A) , No pain 9:18:42 69 15 98 9.7 117/75(112) NSR 0 (11) 9(A) , No pain 9:23:00 87 15 97 33.7 119/69(95) NSR 0 (11) 10(A) , No pain Medications Time Medication Route Dose Verified Delivered Reason Notes Effe ctiveness by by 9:03:42 0.9% NaCl I.V. 100 Sean Alyssia used for ml/hr [place] [facility] procedure MD KARIMI 9:03:49 Oxygen etCO2 2 Sean Alyssia used for Nasal l/min [facility] procedure cannula MD KARIMI 9:03:54 Lidocaine 2% added 20ml Sean Estrada for local to vial [facility] anesthetic field MD CORBIN 9:03:58 Heparin Flush added 2 Sean Sean used for Bag to bags [facility] procedure (1000units/500ml field MD CORBIN NS) 9:15:21 Versed I.V. 2 mg Sean Alyssia for [place] [facility] sedation MD KARIMI 9:15:31 Fentanyl I.V. 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 8:44:45 2) 60-89 Mildly reduced kidney function, and other findings (as for stage 1) point to kidney disease. 8:45:55 Procedure Status Urgent Heart Cath (IP). 8:46:01 Alyssia Infante RN sent for patient. Start room use. 8:48:23 Time tracking: Regular hours (M-F 7:00 - 5:00) 8:48:43 Plan of Care:Hemodynamics will remain stable., Cardiac rhythm will remain stable., Comfort level will be maintained., Respiratory function will remain adequate., Patient/ family verbilizes understanding of procedure., Procedure tolerated without complication., Recovers from procedure without complications.. 8:53:30 Patient allergic to Other allergyADHESIVE TAPE, LATEX 8:58:19 Patient received from FanChatter II to CCL 1 Alert and oriented. Tansferred to table in Supine position. 8:58:20 Warm blankets applied, and benjamin hugger turned on for patient comfort. 8:58:21 Correct patient and procedure confirmed by team. 8:58:21 ECG and BP/O2 sat monitors applied to patient. 9:03:34 Vital chart was started 9:03:42 0.9% NaCl 100 ml/hr I.V. was administered by Alyssia Infante RN; used for procedure; Verbal order read back and verified. 9:03:49 Oxygen 2 l/min etCO2 Nasal cannula was administered by Alyssia Infante RN; used for procedure; Verbal order read back and verified. 9:03:54 Lidocaine 2% 20ml vial added to field was administered by Sean Montero MD; for local anesthetic; Verbal order read back and verified. 9:03:58 Heparin Flush Bag (1000units/500ml NS) 2 bags added to field was administered by Sean Montero MD; used for procedure; Verbal order read back and verified. 9:06:07 Baseline sample Acquired. 9:06:11 Rhythm: sinus rhythm 9:06:12 Full Disclosure recording started 9:06:13 Pre-procedure instructions explained to patient. 9:06:14 Pre-op teaching completed and patient verbalized understanding. 9:06:16 Family in patients room. 9:06:17 Patient NPO since Midnight. 9:06:20 Is the patient allergic to Iodine/contrast media? No. 9:06:22 Is patient on blood thinner?No 9:06:45 PT. FINISHED HER DOSING OF EFFIENT LAST MONDAY 9:06:51 Patient diabetic? Yes. 9:06:53 If diabetic: On Metformin? Yes 9:06:55 If on Metformin: Last Dose? 04/06/2019 9:06:57 Patient not . Patient is over age 55. 9:07:01 Previous problem with sedation/anesthesia? No ? 9:07:02 Snore? Yes 9:07:03 Sleep apnea? No 9:07:04 Deviated septum? No 9:07:04 Opens mouth fully? Yes 9:07:05 Sticks out tongue? Yes 9:07:07 Airway obstruction? No ? 9:07:09 Dentures? Yes OUT 9:07:12 Pre procedure: right dorsailis pedis pulse 1+ Palpable, but thready & weak; easily obliterated 9:07:15 Patient pain scale 0/10 ?. 9:07:20 IV patent on arrival in left forearm with 0.9% NaCl at KVO. 9:07:23 Lab results completed and on chart. 9:07:27 Right groin area was prepped with chlora-prep and draped in sterile fashion 9:07:28 Alarms reviewed by R. N. 9:07:28 Sharps counted by scrub and verified by R.N. 9:07:30 Use device set Femoral Dx 9:07:31 ACIST Syringe (11374) opened to sterile field. 9:07:31 Bag Decanter (2002S) opened to sterile field. 9:07:33 ACIST Hand Control (08591) opened to sterile field. 9:07:33 ACIST Manifold (31862) opened to sterile field. 9:07:34 Tegaderm 4 x 4 (1626W) opened to sterile field. 9:07:35 Medline Cath Pack ([id number]) opened to sterile field. 9:07:36 DIAGNOSTIC Multipack 5Fr catheter set ([id number]) opened to sterile field. 9:07:37 SHEATH 5FR [place] (IFW788) opened to sterile field. 9:07:38 EMERALD Guide Wire (339-689) opened to sterile field. 9:14:16 --------ALL STOP TIME OUT------ 9:14:17 Final Timeout: patient, procedure, and site verified with staff and physician. All members of the team are in agreement. 9:14:18 Right groin site verified by team. 9:14:21 Fire Safety Assessment: A--An alcohol-based skin anteseptic being used preoperatively., C--Open oxygen or nitrous oxide is being used., D--An ESU, laser, or fiber-optic light is being used. 9:14:24 Physical assessment completed. ASA score P 2 - A patient with mild systemic disease as per Sean Montero MD. 9:14:28 Sedation plan: IV Moderate Sedation Medication:Versed, Fentanyl 9:15:21 Versed 2 mg I.V. was administered by Alyssia Infante RN; for sedation; Verbal order read back and verified. 9:15:31 Fentanyl 100 mcg I.V. was administered by Alyssia Infante RN; for sedation; Verbal order read back and verified. 9:16:22 Zero performed for pressure channel P1 9:16:26 Procedure started. 9:16:29 Local anesthetic to right femoral artery with Lidocaine 2% by Sean Montero MD.INITIAL ACCESS ONLY 9:16:37 A 5 Fr sheath was inserted into the Right Femoral artery 9:16:42 Zero performed for pressure channel P1 9:16:59 Zero performed for pressure channel P1 9:17:14 A MULTIPACK JL 4.0 5Fr catheter was advanced over the wire and used for Procedure. 9:18:20 LCA angiography performed. 9:18:21 Catheter removed. 9:18:33 A MULTIPACK 3DRC 5Fr catheter was advanced over the wire and used for Procedure. 9:19:26 RCA angiography performed. 9:19:27 Catheter removed. 9:19:49 A MULTIPACK Pigtail 5 Fr catheter was advanced over the wire and used for Procedure. 9:20:21 LV gram done using LOPEZ 9:20:23 Injector settings: Ml/sec: 10, Volume: 20, 9:20:56 LV hemodynamics recorded. 9:21:14 EF : 50 % 9:21:16 Catheter removed. 9:21:18 EXOSEAL 5Fr (EX500) opened to sterile field. 9:21:29 Sheath removed intact; hemostasis achieved with Exoseal to the Right Femoral artery. 9:22:01 Procedure ended.(Physican Out) 9:22:12 Fluoroscopy time 01.10 minutes. 9:22:19 Flurop Dose total: 331 9:22:19 Fluoroscopy dose: 331 mGy 9:22:24 Dose Area Product 31622 mGy/cm. 9:22:33 Contrast amount:Isovue 300 48ml. 9:22:35 Maximum allowable dose exceeded? No. 9:22:36 Sharps counted by scrub and verified by R.N. 9:23:01 Post-op/insertion site Right Femoral artery dressed using a 4 x 4 and Tegaderm. 9:23:04 Post-procedure physical assessment completed. ASA score P 2 - A patient with mild systemic disease as per Sean Montero MD. 9:23:09 Post procedure rhythm: unchanged. 9:23:12 Estimated blood loss: 5 ml 9:23:14 Post procedure instruction explained to patient.Patient verbalizes understanding. 9:23:14 Patient needs reinforcement of post procedure teaching. 9:23:40 Procedure and supply charges have been captured, reviewed, submitted and are correct. 9:23:43 Procedure Complication : No complications 9:23:46 Vital chart was stopped 9:23:46 See physician's report for complete and final results. 9:23:48 Report given to [facility] II. 9:23:51 Patient transfered to Med II with Bed. 9:23:52 Procedure ended. 9:23:52 Full Disclosure recording stopped 9:23:57 End room use (Document Last) 9:25:59 End room use (Document Last) Device Usage Item Name Manufacture Quantity Catalog Hospital Part Current Minimal L ot# / Number Charge Number Stock Stock Serial# Code ACIST Acist 1 75277 785032 942733 076832 20 Syringe Medical (19877) Systems Inc Bag Microtek 1 928976 96348 578615 5 Decanter Medical Inc. () ACIST Hand Acist 1 27310 123595 469517 467221 5 Control Medical (23164) Systems Inc ACIST Acist 1 47687 439889 032789 328360 5 Manifold Medical (84403) Systems Inc Tegaderm 4 3M 1 1626W 539211 770692 686835 5 x 4 (1626W) Medline Medline 1 [id number] 069723 72224 334559 5 Cath Pack ([id number]) DIAGNOSTIC Cardinal 1 [id number] 758325 17138 980536 30 Multipack [employer] 5Fr catheter set (FJ3726) SHEATH 5FR Terumo 1 PQF086 549376 861060 673219 5 [place] (JZH866) EMERALD Cardinal 1 502-694 576144 288121 008692 5 Guide Wire [facility] (162-884) MULTIPACK Cardinal 1 873000 5 JL 4.0 5Fr [facility] catheter MULTIPACK Cardinal 1 696986 5 3DRC 5Fr [facility] catheter MULTIPACK Cardinal 1 511008 5 Pigtail 5 Health Fr catheter EXOSEAL 5Fr Cardinal 1 EX500 950845 237127 220478 10 (EX500) [facility] Signature Audit [place] Stage Time Signature Unsigned Intra-Procedure 04/07/2019 Alyssia Infante 9:25:59 AM RN Intra-Procedure 04/07/2019 Sean Karimi 9:26:[address] [facility] [address] [place] [address]
[~2019-04-06 12:13] MED LIST changes: +LIPITOR40 MG PO
[2019-04-06 13:10] LABS: BASOPHILS 0.1 % (0-2); EOSINOPHILS 1.9 % (0-7); HEMATOCRIT 38.8 % (36.0-48.0); HEMOGLOBIN 12.5 g/dL (12-16); IMMATURE GRANULOCYTES 0.1 % (0-5); LYMPHOCYTES 19.6 % (15-50); MCH 28.2 pg (26.0-34.0); MCHC 32.2 g/dL (31.0-37.0); MCV 87.4 fL (80.0-100.0); MEAN PLATELET VOLUME 9.9 fL (7.4-10.4); NEUTROPHILS 72.3 % (40-80); PLATELET COUNT 195 10x3/uL (130-400); RBC 4.44 10x6/uL (4.00-5.40); WBC 6.9 10x3/uL (4.8-10.8)
[2019-04-06 13:16] VITALS: BP 192/106
[2019-04-06 13:21] LABS: ALBUMIN 3.7 g/dL (3.4-5.0); ALKALINE PHOSPHATASE 69 U/L (46-116); ALT (SGPT) 72 U/L (10-68); BILIRUBIN - TOTAL 0.42 mg/dL (0.2-1.3); CALC OSMOLALITY 281 mosm/kg (275-300); CARBON DIOXIDE 29.2 mmol/L (21.0-32.0); CHLORIDE - SERUM 103 mmol/L (98-107); CREATININE - SERUM 0.7 mg/dL (0.6-1.3); GLUCOSE 159 mg/dL (74-106); POTASSIUM - SERUM 4.5 mmol/L (3.5-5.1); PROTEIN - SERUM 7.2 g/dL (6.4-8.2); SODIUM 140 mmol/L (136-145); UREA NITROGEN 13 mg/dL (7-18); eGFR NON AFRICAN AMERICAN 89 mL/min (90-120)
[2019-04-06 13:27] LABS: APTT 26.9 SECONDS (22.8-39.4); INR 1.03 (0.85-1.17)
--- NOTE | 2019-04-06 13:30 | NUR ---
PATIENT AWAKE AND ALERT; SPOUSE AT BEDSIDE; UPDATED ON PLAN OF CARE AND DELAYS IN CARE; WILL CONTINUE TO MONITOR; TO RESTROOM WITOUT ASSISTANCE.
[2019-04-06 13:37] LABS: CKMB 1.9 U/L (0.0-3.6); CREATINE KINASE 51 UL (21-215); MAGNESIUM - SERUM 1.6 mg/dL (1.8-2.4)
[2019-04-06 13:40] LABS: TROPONIN-I 0.158 ng/mL (0.000-0.060)
[2019-04-06 14:03] VITALS: BP 184/92
[2019-04-06 14:13] VITALS: BP 128/83
--- NOTE | 2019-04-06 14:30 | NUR ---
PATIENT TO RESTROOM WITHOUT ASSIST. AWAKE AND ALERT; NO NEEDS NOTED; UPDATED ON PLAN OF CARE AND DELAYS IN CARE; WILL CONTINUE TO MONITOR
[2019-04-06 14:56] VITALS: BP 139/82
--- NOTE | 2019-04-06 16:30 | NUR ---
RECEIVED PT TO ROOM 2117 VIA W/C FROM ER AAOX4 RESP UNLABORED SKIN W/D COLOR WNL DENIES ANY CHEST PAIN OR DISCOMFORT TELEMETRY SHOWS SR RATE 67 WILL CONTINUE TO MONITOR
[2019-04-06 17:42] VITALS: BP 120/64; Ht 166.4 cm; Wt 72.7 kg
[2019-04-06 19:52] LABS: CKMB 11.9 U/L (0.0-3.6); CREATINE KINASE 116 UL (21-215)
[2019-04-06 19:54] LABS: TROPONIN-I 5.655 ng/mL (0.000-0.060)
[2019-04-06 20:00] VITALS: BP 134/76
--- NOTE | 2019-04-06 20:00 | NUR ---
INITIAL ROUNDS AND ASESSMENT COMPLETED. PT RESTING IN BED WITH AT BEDSIDE. ALERT/ORIENTED. JUST SEEN BY DR CASTILLO AND WILL BE HAVING A HEART CATH IN THE AM. SR PER TELEMETRY. PIV TO RIGHT A/C WITH NS @ 75ML/HR. PT HUNGRY. SANDWICH TRAY PROVIDED. PT TEACHING ON NPO AFTER MIDNIGHT.
--- NOTE | 2019-04-06 21:12 | NUR ---
PAGE TO DR TAY, REPORTED CRITICAL TROPONIN OF 5.655. NEW ORDERS RECIEVED.
--- NOTE | 2019-04-06 21:40 | NUR ---
ORDERED PLAVIX 600MG GIVEN.
--- NOTE | 2019-04-06 23:15 | NUR ---
PT WITH SOME TIGHTNESS IN CHEST. IV MORPHINE/IV ZOFRAN ADMINISTERED. SR PER TELEMETRY. CPOC.
[2019-04-07 00:30] VITALS: BP 146/82
[2019-04-07 01:52] LABS: BASOPHILS 0.1 % (0-2); HEMATOCRIT 38.3 % (36.0-48.0); HEMOGLOBIN 12.2 g/dL (12-16); IMMATURE GRANULOCYTES 0.1 % (0-5); LYMPHOCYTES 32.2 % (15-50); MCH 27.9 pg (26.0-34.0); MCHC 31.9 g/dL (31.0-37.0); MCV 87.4 fL (80.0-100.0); MEAN PLATELET VOLUME 9.6 fL (7.4-10.4); MONOCYTES 6.7 % (2-11); NEUTROPHILS 58.9 % (40-80); PLATELET COUNT 217 10x3/uL (130-400); RBC 4.38 10x6/uL (4.00-5.40); RDW 14.1 % (11.5-14.5); WBC 7.6 10x3/uL (4.8-10.8)
[2019-04-07 02:23] LABS: ALBUMIN 3.4 g/dL (3.4-5.0); ALKALINE PHOSPHATASE 63 U/L (46-116); ALT (SGPT) 64 U/L (10-68); BILIRUBIN - TOTAL 0.37 mg/dL (0.2-1.3); CALC OSMOLALITY 284 mosm/kg (275-300); CARBON DIOXIDE 30.1 mmol/L (21.0-32.0); CHLORIDE - SERUM 105 mmol/L (98-107); CKMB 11.4 U/L (0.0-3.6); CREATINE KINASE 108 UL (21-215); CREATININE - SERUM 0.7 mg/dL (0.6-1.3); GLUCOSE 127 mg/dL (74-106); MAGNESIUM - SERUM 1.6 mg/dL (1.8-2.4); POTASSIUM - SERUM 4.1 mmol/L (3.5-5.1); PROTEIN - SERUM 6.6 g/dL (6.4-8.2); SODIUM 142 mmol/L (136-145); UREA NITROGEN 12 mg/dL (7-18); eGFR NON AFRICAN AMERICAN 89 mL/min (90-120)
[2019-04-07 02:26] LABS: TROPONIN-I 5.301 ng/mL (0.000-0.060)
[2019-04-07 04:00] VITALS: BP 143/78
--- NOTE | 2019-04-07 07:15 | NUR ---
RECEIVED PT IN BED AAOX4 RESP UNLABORED SKIN W/D PT DENIES ANY CHEST PAIN NAD NOTED
[2019-04-07 07:51] VITALS: BP 130/73
--- NOTE | 2019-04-07 08:48 | NUR ---
PREOP MEDS GIVEN PT TO SCHEDULE MANAGER VIA BED
--- NOTE | 2019-04-07 09:50 | NUR ---
RECEIVED PT BACK TO ROOM VIA BED VSS PPPX4 DRSG C/D/I RESP UNLABORED NAD NOTED WILL CONTINUE TO MONITOR
[2019-04-07 12:11] VITALS: BP 105/70
--- NOTE | 2019-04-07 12:13 | CN ---
PATIENT NAME:WARREN CASTILLO MEDICAL RECORD: [id number] : 51 LOCATION:D. D.2118 ADMIT DATE: 04/06/19 ACCOUNT: [id number] CONSULTING PHYSICIAN: HUDSON CASTILLO MD REFERRING PHYSICIAN: INA VALENTINO DO DATE OF CONSULTATION: 04/07/2019 HISTORY OF PRESENT ILLNESS: A 64-year-old female with known history of coronary artery disease, status post intervention to LAD and right via Dr. Agrawal, has a history of hypertension, dyslipidemia, admitted with rest symptomology, chest tightness, pressure radiating to jaw consistent with her previous angina. She finished Plavix 6 months earlier in the week, presented to the ER, found to have elevated cardiac enzymes consistent with NSTEMI. We are asked to see her concerning her cardiovascular status. PAST MEDICAL HISTORY: Includes: 1. History of hypertension. 2. Hyperlipidemia. 3. Coronary artery disease as described above. 4. Diabetes mellitus. ALLERGIES: ADHESIVE TAPE, LATEX. MEDICATIONS: Include metformin 1 gram b.i.d., omeprazole 20 mg p.o. every day, Lipitor 40 mg p.o. every day, lisinopril 20 mg p.o. day, aspirin 81 p.o. every day. SOCIAL HISTORY: Nonsmoker, nondrinker. She is able to care of all her ADLs. No set exercise program. REVIEW OF SYSTEMS: The patient reports easy bruising but reports no swollen glands. The patient reports no fever, no night sweats, no significant weight gain, no significant weight loss. No significant exercise tolerance. The patient reports no dry eyes, no irritation, no vision change. Patient reports no difficulty hearing and no ear pain. Patient reports no frequent nose bleeds or nose and sinus problems. Patient reports on arm pain on exertion. No shortness of breath while lying down. No history of heart murmur. Patient reports no cough, no wheezing or coughing up blood. Patient reports no abdominal pain, no vomiting. Normal appetite. No diarrhea and not vomiting blood. No nausea and no constipation. Patient reports no incontinence. No difficulty urinating. No hematuria. No increased frequency. Patient reports no muscle aches. No weakness, no arthralgias, no back pain. No swelling of the extremities. Patient reports no abnormal mole, no jaundice, no rashes. Reports no loss of consciousness. No weakness and no numbness. No seizures, dizziness, or headaches. The patient reports no depression, no sleep disturbance, feeling safe in a relationship and no alcohol abuse. Patient reports on fatigue. Reports no runny nose or sinus pressure. No itching, no hives, and no frequent sneezing. PHYSICAL EXAMINATION: GENERAL: Pleasant female in no acute distress, appears stated age. VITAL SIGNS: Blood pressure 130/73, pulse 75 and regular. HEENT: Normocephalic, atraumatic. NECK: No JVD or bruit. HEART: Regular. CONSULT REPORT [id number] WARREN CASTILLO LUNGS: Good air excursion. ABDOMEN: Soft, nontender. EXTREMITIES: Pulses 2+ with no edema. NEUROLOGIC: Grossly intact. DIAGNOSTIC DATA: ECG shows nonspecific ST-T changes. IMPRESSION: NSTEMI with known coronary disease. PLAN: For angiography, intervention based on the above. TRANSINT:[id number] Voice Confirmation ID: [id number] DOCUMENT ID: [id number] HUDSON CASTILLO MD at 1213 CC: [id number] DICTATION DATE: 04/07/19 0848 LEAD JAVA DEVELOPER ARCHITECT: 04/07/19 1040 ADM IN [facility] [address] [place] [address]
[2019-04-07] MEDS ORDERED: EFFIENT10 MG PO (13:51)
--- NOTE | 2019-04-07 16:15 | NUR ---
REVIEWED DISCHARGE INSTRUCTIONS WITH PT STATES UNDERSTANDING COPY GIVEN DCD SALINE LOCK TO LAC WITH IV CATHETER INTACT SITE FREE OF REDNESS OR EDEMA PT DISCHARGED HOME LEFT UNIT VIA W/C IN STABLE CONDITION WITH ALL PERSONAL BELONGINGS
--- NOTE | 2019-04-08 09:30 | MORECARE ---
CASE MANAGEMENT DISCHARGE SUMMARY PATIENT: WARREN CASTILLO UNIT: [id number] ADM DATE: 04/06/19 AGE: 64 : [birth year] SEX: F ROOM/BED: D.2118 AUTHOR: KILO CONTRERAS PHYSICIAN: REFERRING PHYSICIAN: INA VALENTINO DO DATE OF SERVICE: 04/08/19 Discharge Plan Patient Name: WARREN CASTILLO Facility: [facility]:[place] : 1955 Planned Disposition: Home Anticipated Discharge Date: 04/07/19 Discharge Date: 04/07/2019 Expected LOS: 1 Initial Reviewer: [email or web address] Initial Review Date: 04/08/2019 Generated: 04/08/19 10:29 am Coverage Notice Reviewer: [email or web address] Ravindra Shields Notice Issued Date-Time: 04/06/2019 14:52 Notice Type: Medicare Outpatient Observation Notice Notice Delivered To: Patient Relationship to Patient: Self Computer Graphic Artist Name: Warren Castillo Delivery Method: HAND - Hand Delivered Samaria Days: Prior Verbal Notification: Recipient Understood Notice: Yes Recipient Signature: Yes Med Rec Note Co-signed by Attending: Coverage Notice Comment: MENDEZ delivered to and signed by patient. Patient Name: WARREN CASTILLO Page [phone] at 0930 All edits/amendments must be made on the electronic document DICTATION DATE: 04/08/19928 MENHADEN VESSEL PILOT: MILLIE 04/08/19928 RPT#: [id number] DC DATE:04/07/19 STATUS: DIS IN [facility] [address] [place] [address] END OF REPORT
--- NOTE | 2019-04-10 11:07 | OP ---
PATIENT NAME: WARREN CASTILLO MEDICAL RECORD: [id number] :51 LOCATION:D.M2 D.2118 ADMISSION DATE:04/06/19 SURGEON: HUDSON CASTILLO MD DATE OF OPERATION: 04/07/2019 PROCEDURE: Left heart catheterization, selective coronary angiography, right femoral artery approach. CATHETERS: A 5-Yakut sheath, 5/4 left and right Kwasi, 5/4 pig. The procedure was well tolerated. The patient returned to pitts, sheath removed. ExoSeal device placed. FINDINGS: Left ventriculography in 30-degree LOPEZ view: Normal wall motion, normal systolic function. CORONARY ANATOMY: LEFT MAIN: Left main is free of disease. LAD: A smallish LAD, not reaching the apex. Previously placed stent is widely patent. No evidence of haziness, no evidence of contrast hanging up in any diagonal branches. CIRCUMFLEX: Good sized circumflex, free of disease. RIGHT CORONARY ARTERY: Previously placed stent is widely patent. No evidence of restenosis. No haziness to represented aborted subacute thrombosis. IMPRESSION: Widely patent stents with no restenosis. No focal wall motion abnormality on LV gram. TRANSINT:[id number] Voice Confirmation ID: [id number] DOCUMENT ID: [id number] HUDSON CASTILLO MD at 1107 CC: [id number] DICTATION DATE: 04/07/19924 CONSTRUCTION SUPERINTENDENT: 04/07/19 1107 DIS IN 04/07/19 [place] [address] [place] [id number]
== END 2019-04-07 16:15 | disposition home or self-care (01) ==
LOC: D.ER 12:13 → D.M2 14:24 → OBSVTIME 15:37 → D.M2 04-07 16:15
PROVIDERS: Family Medicine; ADMIT Family Medicine; ATTEND Family Medicine
DX: I25.110 Atherosclerotic heart disease of native coronary artery with unstable angina pectoris (principal); E11.65 Type 2 diabetes mellitus with hyperglycemia; I10 Essential (primary) hypertension; K21.9 Gastro-esophageal reflux disease without esophagitis; K22.70 Barrett's esophagus without dysplasia; E83.42 Hypomagnesemia; E78.5 Hyperlipidemia, unspecified

== ENCOUNTER → 2019-04-17 09:58 | Outpatient (CLI) | payer MEDICARE, OTHER ==
[2019-04-06 17:42] VITALS: BMI 26.2
== END | disposition home or self-care (01) ==
LOC: D.US 09:58
PROVIDERS: ATTEND Internal Medicine Cardiovascular Disease
DX: M79.604 Pain in right leg (principal)

== ENCOUNTER 2019-07-10 08:00 | Outpatient (CLI) | payer MEDICARE, OTHER ==
[2019-04-06 17:42] VITALS: BMI 26.2
== END 2019-07-10 23:59 | disposition home or self-care (01) ==
LOC: D.MAMMO 08:00
PROVIDERS: ATTEND Family Medicine
DX: Z12.31 Encounter for screening mammogram for malignant neoplasm of breast (principal)

== ENCOUNTER 2020-12-23 11:15 | Outpatient (CLI) | payer MEDICARE, OTHER ==
[2019-04-06 17:42] VITALS: BMI 26.2
== END 2020-12-23 11:45 | disposition home or self-care (01) ==
LOC: D.MAMMO 11:15
PROVIDERS: ATTEND Family Medicine
DX: Z12.31 Encounter for screening mammogram for malignant neoplasm of breast (principal)